=== PATIENT | male | born 1955 | race Caucasian/White ===

== ENCOUNTER 2022-07-31 12:17 | Outpatient (REF) | payer OTHER, SELFPAY ==
[2022-07-31 15:44] LABS: SARS PCR* Negative SARS-CoV-2 (Negative)
== END 2022-07-31 12:18 | disposition home or self-care (01) ==
LOC: NPINS 12:17
PROVIDERS: PCP Family Medicine; Visit Provider Internal Medicine
DX: Z20.822 Contact with and (suspected) exposure to COVID-19 (principal)
CPT/HCPCS: 87635

== ENCOUNTER 2022-08-03 20:24 | Outpatient (CLI) | payer MEDICARE, SELFPAY | END 2022-08-03 20:25 | disposition home or self-care (01) | PROVIDERS: PCP Family Medicine; Visit Provider Internal Medicine | DX: G47.33 Obstructive sleep apnea (adult) (pediatric) (principal) | CPT/HCPCS: 95810 ==

== ENCOUNTER 2023-06-20 18:17 | Outpatient (CLI) | payer MEDICARE, SELFPAY | END 2023-06-20 18:18 | disposition home or self-care (01) | PROVIDERS: PCP Family Medicine; Visit Provider Student in an Organized Health Care Education/Training Program | DX: S79.912A Unspecified injury of left hip, initial encounter (principal); S09.90XA Unspecified injury of head, initial encounter; W06.XXXA Fall from bed, initial encounter; Y92.003 Bedroom of unspecified non-institutional (private) residence as the place of occurrence of the external cause | CPT/HCPCS: A0425; A0433 ==

== ENCOUNTER 2023-06-20 18:57 | Emergency (ER) | payer MEDICARE, SELFPAY ==
[2023-06-20 19:04] VITALS: BP 131/77; PULSE 74; RESP 18; TEMP 36.8; O2SAT 99; BMI 26.6
--- NOTE | 2023-06-20 19:18 | CRLHL7_ITS ---
For Patients: As a result of the Cures Act, medical imaging exams and procedure reports are released immediately into your electronic medical record. You may view this report before your referring provider. If you have questions, please contact your health care provider. INDICATION: Fall right hip pain TECHNIQUE: AP pelvis and right hip views FINDINGS: Normal alignment. No acute fractures or acute osseous abnormalities. IMPRESSION: No acute fracture. Dictated by Mary Anne Marie MD @ 06/20/2023 9:04:24 PM (Electronically Signed)
--- NOTE | 2023-06-20 19:18 | CRLHL7_ITS ---
For Patients: As a result of the Century Cures Act, medical imaging exams and procedure reports are released immediately into your electronic medical record. You may view this report before your referring provider. If you have questions, please contact your health care provider. INDICATION: Injury COMPARISON: None TECHNIQUE: CT examination of the head was performed as axial sections without intravenous contrast. Images were obtained from the vertex of the skull through the skull base. Please note that all CT scans at this facility use dose modulation, iterative reconstruction, and/or weight-based dosing when appropriate to reduce radiation dose to as low as reasonably achievable. FINDINGS: The brain shows no sign of mass lesion, mass effect, hemorrhage, or edema. There is a relatively large area of encephalomalacia involving the posterior left frontal and anterior left parietal lobes consistent with an old infarct There are involutional changes. There is mild cortical atrophy and there is mild white matter disease. There is no hydrocephalus. The visualized portions of the orbits are normal in appearance. The osseous structures are normal in appearance with no sign of abnormality in the skull base or calvarium. IMPRESSION: 1. Involutional changes. 2. 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 3. No acute intracranial findings. No acute posttraumatic findings. No calvarial fracture. Please note that all CT scans at this facility use dose modulation, iterative reconstruction, and/or weight-based dosing when appropriate to reduce radiation dose to as low as reasonably achievable. Dictated by Kenny Cancino MD @ 06/20/2023 8:59:31 PM (Electronically Signed)
--- NOTE | 2023-06-20 19:20 | ED_ITS ---
HPI - General Adult General Date Seen: 06/20/23 <Dale Lyles DO - Last Filed: 06/20/23 20:14> Chief complaint: Back Injury/Pain <Dale Lyles - Last Filed: 06/20/23 20:14> Stated complaint: R side back/leg pain <Dale Lyles - Last Filed: 06/20/23 20:14> Time Seen by Provider: 06/20/23 19:14 <Dale Blake Rafal - Last Filed: 06/20/23 20:14> Source: patient <Dale Lyles DO - Last Filed: 06/20/23 20:14> Mode of arrival: EMS <Dale Lyles DO Last Filed: 06/20/23 20:14> Limitations: no limitations <Dale Lyles DO Last Filed: 06/20/23 20:14> History of Present Illness HPI narrative: Patient is a 67-year-old male presenting emergency department for right low back pain. He states earlier around 12:30 he rolled of bed while taking a nap landing on the floor. He says he hit his head off the nightstand. Since then he has been having a lot of low back pain is having difficulty walking due to this. He does have a history of a stroke 4 years ago with residual right- sided weakness and numbness. The weakness and numbness is not any different now compared to before. Denies a headache. Denies lightheadedness, dizziness, chest pain, shortness of breath. No other injuries noted. <Dale Lyles - Last Filed: 06/20/23 20:14> Related Data Home medications: Home Medications Medication Instructions Recorded Confirmed ezetimibe 10 mg tablet 10 mg PO DAILY 06/20/23 06/20/23 lisinopril 10 1 tab PO DAILY 06/20/23 06/20/23 mg-hydrochlorothiazide 12.5 mg tablet mirtazapine 7.5 mg tablet 7.5 mg PO QPM 06/20/23 06/20/23 rosuvastatin 40 mg tablet 40 mg PO DAILY 06/20/23 06/20/23 zolpidem 10 mg tablet 10 mg PO QPM PRN 06/20/23 06/20/23 Previous Rx's Medication Instructions Recorded cyclobenzaprine 10 mg tablet 10 mg PO TID PRN muscle spasm #14 06/20/23 tabs <Dale Lyles DO - Last Filed: 06/20/23 20:14> Allergies/adverse reactions: Allergies Allergy/AdvReac Type Severity Reaction Status Date / Time No Known Drug Allergies Allergy Verified 06/20/23 19:02 <Dale Lyles DO - Last Filed: 06/20/23 20:14> Review of Systems Status of ROS: Reports: 10 or more systems reviewed and unremarkable except as noted in History and below <Dale Lyles DO - Last Filed: 06/20/23 20:14> Exam Narrative: Exam Narrative: Const: Well-nourished, Well-developed, in mild distress Eyes: PERRL, no conjunctival injection, and symmetrical lids HENT: Atraumatic external nose and ears. Moist mucous membranes. MSK:Extremities w/o deformity, Normal Active ROM. Right hip pain tender to palpation. No midline back tenderness Skin: Warm, Dry. No rashes or lesions. Neuro: Normal Muscle tone, right-sided numbness, at baseline Psych: Awake, Alert, & Oriented x3. Appropriate mood and affect. <Dale Lyles DO - Last Filed: 06/20/23 20:14> Const: Vital Signs, click to edit/add: Vital Signs - 24 hr 06/20/23 19:04 06/20/23 19:42 06/20/23 20:03 Temperature 98.2 F 98.2 F Pulse Rate [Right Pulse Oximeter] 74 54 L Respiratory Rate 18 16 Blood Pressure [Ri ght Upper Arm] 131/77 119/58 L Pulse Oximetry 99 96 Oxygen Delivery Me thod Room Air Room Air <Dale Lyles DO - Last Filed: 06/20/23 20:14> Vital Signs, click to edit/add: Vital Signs - 24 hr 06/20/23 19:04 06/20/23 19:42 06/20/23 20:03 Temperature 98.2 F 98.2 F Pulse Rate [Right Pulse Oximeter] 74 54 L Respiratory Rate 18 16 Blood Pressure [Ri ght Upper Arm] 131/77 119/58 L Pulse Oximetry 99 96 Oxygen Delivery Me thod Room Air Room Air <Kiran Wu MD - Last Filed: 06/20/23 21:24> Course Vital Signs Vital signs: Initial Vital Signs Temperature 98.2 F 06/20/23 19:04 Temperature Source Temporal Artery Scan 06/20/23 19:04 Pulse Rate 74 06/20/23 19:04 Respiratory Rate 18 06/20/23 19:04 Blood Pressure 131/77 06/20/23 19:04 Blood Pressure Mean 95 06/20/23 19:04 Blood Pressure Position Supine 06/20/23 19:04 Pulse Oximetry 99 06/20/23 19:04 Oxygen Delivery Method Room Air 06/20/23 19:04 Vital Signs Temperature 98.2 F 06/20/23 19:04 Pulse Rate 74 06/20/23 19:04 Respiratory Rate 18 06/20/23 19:04 Blood Pressure 131/77 06/20/23 19:04 Pulse Oximetry 99 06/20/23 19:04 Oxygen Delivery Method Room Air 06/20/23 19:04 Temperature 98.2 F 06/20/23 19:42 Pulse Rate 54 L 06/20/23 20:03 Respiratory Rate 16 06/20/23 20:03 Blood Pressure 119/58 L 06/20/23 20:03 Pulse Oximetry 96 06/20/23 20:03 Oxygen Delivery Method Room Air 06/20/23 20:03 <Dale Lyles DO - Last Filed: 06/20/23 20:14> Initial Vital Signs Temperature 98.2 F 06/20/23 19:04 Temperature Source Temporal Artery Scan 06/20/23 19:04 Pulse Rate 74 06/20/23 19:04 Respiratory Rate 18 06/20/23 19:04 Blood Pressure 131/77 06/20/23 19:04 Blood Pressure Mean 95 06/20/23 19:04 Blood Pressure Position Supine 06/20/23 19:04 Pulse Oximetry 99 06/20/23 19:04 Oxygen Delivery Method Room Air 06/20/23 19:04 Vital Signs Temperature 98.2 F 06/20/23 19:04 Pulse Rate 74 06/20/23 19:04 Respiratory Rate 18 06/20/23 19:04 Blood Pressure 131/77 06/20/23 19:04 Pulse Oximetry 99 06/20/23 19:04 Oxygen Delivery Method Room Air 06/20/23 19:04 Temperature 98.2 F 06/20/23 19:42 Pulse Rate 54 L 06/20/23 20:03 Respiratory Rate 16 06/20/23 20:03 Blood Pressure 119/58 L 06/20/23 20:03 Pulse Oximetry 96 06/20/23 20:03 Oxygen Delivery Method Room Air 06/20/23 20:03 <Kiran Wu MD - Last Filed: 06/20/23 21:24> Medical Decision Making MDM Narrative Medical decision making narrative: Patient is a 67-year-old male presenting meds department after falling off his bed. Had no lightheadedness or dizziness after the fall. This happened several hours ago he continued to have pain in his right low back and hip so he came to the emergency department. All the pain seems to be is paraspinal region and to the hip. He is not on any blood thinners but he did hit his head off the nightstand so we will do CT scan of his head. He has no tenderness or step-offs felt along his spinal column and not believe imaging the spinal column is necessary. He received fentanyl and Ativan prior to arrival and will be given Toradol. Patient is still pending imaging at the end of my shift. He is able to walk it will likely be able to be discharged home. He was signed out to my colleague Dr. Wu. See his note for final disposition and results <Dale Lyles DO - Last Filed: 06/20/23 20:14> Patient is a 67-year-old male presenting meds department after falling off his bed. Had no lightheadedness or dizziness after the fall. This happened several hours ago he continued to have pain in his right low back and hip so he came to the emergency department. All the pain seems to be is paraspinal region and to the hip. He is not on any blood thinners but he did hit his head off the nightstand so we will do CT scan of his head. He has no tenderness or step-offs felt along his spinal column and not believe imaging the spinal column is necessary. He received fentanyl and Ativan prior to arrival and will be given Toradol. Patient is still pending imaging at the end of my shift. He is able to walk it will likely be able to be discharged home. He was signed out to my colleague Dr. Wu. See his note for final disposition and results Bryce -- Received Mr. Teague in handoff at change of shift pending over-read of head CT and x-rays of the hip. I did review these images myself and see no acute abnormalities. Further Mr. Teague reports himself to feel improved with treatments per Dr. Lyles and ambulatory and in conversation he felt well enough to depart the emergency department. Has made a plan already with Dr. Lyles anticipated normal imaging results. See patient discharge plan <Kiran Wu MD - Last Filed: 06/20/23 21:24> Discharge Plan Discharge Clinical Impression: Strain of lumbar region Qualifiers: Encounter type: initial encounter Qualified Code(s): S39.012A - Strain of muscle, fascia and tendon of lower back, initial encounter <Dale Lyles DO - Last Filed: 06/20/23 20:14> Patient Disposition: Home, Self-Care <Dale Lyles DO - Last Filed: 06/20/23 20:14> Condition: Improved <Dale Lyles DO - Last Filed: 06/20/23 20:14> Instructions: Low Back Strain (ED) <Dale Lyles DO - Last Filed: 06/20/23 20:14> Additional Instructions: Can take acetaminophen or ibuprofen for pain. If not helping you can try the muscle relaxer cyclobenzaprine. Remember that a muscle relaxer can make you lightheaded and increased fall risk so be careful when you take it. see handout on exercises for your low back you might do daily going forward. Sounds like it might be a good idea to put some sort of a barrier up so you can not roll out of bed in your sleep. I will call you if Radiology sees anything more of significance in your hip x- rays <Dale Lyles DO - Last Filed: 06/20/23 20:14> Prescriptions: New cyclobenzaprine 10 mg tablet 10 mg PO TID PRN (Reason: muscle spasm) Qty: 14 0RF No Action lisinopril-hydrochlorothiazide 10-12.5 mg tablet 1 tab PO DAILY zolpidem 10 mg tablet 10 mg PO QPM PRN ezetimibe 10 mg tablet 10 mg PO DAILY rosuvastatin 40 mg tablet 40 mg PO DAILY mirtazapine 7.5 mg tablet 7.5 mg PO QPM <Dale Lyles DO - Last Filed: 06/20/23 20:14> Follow Up/Referrals: Jonatan Simmons MD [Primary Care Provider] - <Dale Lyles DO - Last Filed: 06/20/23 20:14> Stand Alone Forms: [facility] Info Instructions <Dale Lyles DO - Last Filed: 06/20/23 20:14>
[2023-06-20 19:42] VITALS: TEMP 36.8
[2023-06-20] MEDS: KETOROLAC 15 MG/ML inj IVP (19:42)
[2023-06-20 20:03] VITALS: BP 119/58; PULSE 54; RESP 16; O2SAT 96
--- NOTE | 2023-06-20 20:15 | ED.NURSE ---
patient returned from imaging and had patient stand up in the room to attempt to get out of bed. patient slow to move but is pointing to the right flank area with movement. had fallen out of bed at 1400 this afternoon.
== END 2023-06-20 21:19 | disposition home or self-care (01) ==
PROVIDERS: Emergency Provider Student in an Organized Health Care Education/Training Program; PCP Family Medicine
DX: S39.012A Strain of muscle, fascia and tendon of lower back, initial encounter (principal); W06.XXXA Fall from bed, initial encounter
CPT/HCPCS: 70450; 73502; 96374; 99283; 99284; J1885